=== PATIENT | male | born 1960 | race Caucasian/White ===

== ENCOUNTER 2019-10-29 17:46 | Outpatient (CLI) | payer OTHER, SELFPAY ==
[2019-10-29 18:09] LABS: Hematocrit 41.9 % (42.0-52.0); Hemoglobin 14.5 g/dL (14.0-18.0); Mean Corpuscular HGB Conc 34.6 g/dl (32-36); Mean Corpuscular Hemoglobin 32.4 pg (26-34); Mean Corpuscular Volume 93.5 fl (80-100); Mean Platelet Volume 10.1 fl (7.4-10.4); Platelet Count Result 224 k/mm3 (150-375); Red Blood Count 4.48 M/mm3 (4.6-6.20); White Blood Count 6.1 K/mm3 (4.5-10.0)
[2019-10-29 18:30] LABS: Anion Gap 5 mmol/L (8-16); Blood Urea Nitrogen 18 mg/dL (9-20); Carbon Dioxide 28 mmol/L (22-30); Chloride 105 mmol/L (98-107); Estimated Glomerular Filt Rate > 60; Glucose 104 mg/dL (75-110); Potassium 4.1 mmol/L (3.4-5.0); Sodium 138 mmol/L (137-145)
== END 2019-10-29 17:47 | disposition home or self-care (01) ==
PROVIDERS: PCP Family Medicine; Visit Provider Nurse Practitioner Family
DX: H00.019 Hordeolum externum unspecified eye, unspecified eyelid (principal)
CPT/HCPCS: 36415; 80048; 85027

== ENCOUNTER 2022-06-03 01:48 | Day surgery (SDC) | payer OTHER, SELFPAY ==
[2022-06-02 10:53] VITALS: BMI 23.8
--- NOTE | 2022-06-02 11:00 | PC.NURSE ---
Report to the Outpatient Waiting Room, entrance under the green pavilion located off [facility], at time 1130 on date 06/03/22. Planned Procedure Time: 1330. Time changes happen often and if your time is changed the preop area will call you the afternoon before. - You and your visitor will be asked to self-screen and do not enter if you have any COVID symptoms. - Only one visitor is requested with a max of two and NO children visitors are allowed at this time. - The patient visitor may be requested to leave or wait in car when not with patient due to distancing restrictions. - A mask is optional within the hospital at this time. Patients may have clear liquids (water, carbonated beverages, clear teas, apple juice) until 3 hours prior to surgery with a maximum of 20 ounces. - No food from midnight until time of surgery Take the following medications with a SIP of water the morning of surgery: ANTIBIOTIC DO NOT STOP ANY OF YOUR OTHER PRESCRIPTION MEDICATIONS PRIOR TO SURGERY EXCEPT THE FOLLOWING Medications to discontinue per physician: N/A Date to take last dose: N/A Please no make-up, nail mexican, hairspray, perfume, deodorant, or body powder the day of surgery. No jewelry (including any body piercings) or valuables the day of surgery, leave them at home. Please take a shower or bath the night before, or the morning of, surgery with an antibacterial soap. Wear comfortable, loose fitting clothing. - Jewelry must be removed prior to entering the operating room. Rings and piercings that are not removed may be cut off. - The hospital will not accept responsibility for valuables. - Please leave all valuables, including medications, at home the day of surgery. If you are going home after surgery, a licensed taxicab driver must drive you home. - NO public transportation without another adult if you receive anesthesia. - We recommend that an adult stay with you for 24 hours following discharge. - We also recommend that you do not drive, make important decision, drink alcoholic beverages, or take any drugs that were not prescribed by your health care provider for at least 24 hours after your discharge time. Follow any additional instructions given to you from your surgeon. If you or anyone in your household have experienced Covid symptoms in the past week, please notify your surgeon or the nurse liaison at the phone number below for possible testing. Telephone instructions given to PT Sterling GARBER and asked if any additional questions and then verbalized understanding. Patient advised to call surgeon office or pre surgery nurse liaison [phone] if any additional questions.
[2022-06-03 11:28] VITALS: BP 106/59; PULSE 51; RESP 16; TEMP 36.2; O2SAT 100
--- NOTE | 2022-06-03 12:09 | WPDANESEPPF ---
Anes - Initial Pre Proc Eval Procedure: Operation Date: 06/03/22 13:30 Proposed Procedures p Incision and Drainage of Right Buttock Abscess - Fadumo De La Rosa MD Date/Time: 06/03/22 12:09 Surgeon: Fadumo De La Rosa MD Pre Op Diagnosis: Infected Pilonidal Cyst Patient Data Age: 61 Gender: M Height: 1.93 m Weight: 87 kg Last Vital Signs Temp 36.2 C L 06/03/22 11:28 Pulse 51 L 06/03/22 11:28 Resp 16 06/03/22 11:28 BP 106/59 L 06/03/22 11:28 Pulse Ox 100 06/03/22 11:28 O2 Del Method Room Air 06/03/22 11:28 Allergies Allergy/AdvReac Type Severity Reaction Status Date / Time aspirin AdvReac Intermediate Vomiting Verified 06/03/22 11:43 Home Medications Medication Instructions Recorded Confirmed Type albuterol sulfate 90 mcg/actuation 1 inh inhalation Q4H PRN shortness 05/06/22 06/02/22 Rx aerosol inhaler of breath or wheezing #8.5 grams sildenafil 100 mg tablet (Viagra) 100 mg PO DAILY PRN sexual 05/20/22 06/02/22 Rx activity #10 tabs sulfamethoxazole 800 1 tablet PO Q12H 10 days #20 tabs 05/27/22 06/03/22 Rx mg-trimethoprim 160 mg tablet (Bactrim DS) Patient hx anesthesia problems: none Family hx anesthesia problems: none Results Review: All pre-operative results and documents have been reviewed as part of the pre-operative evaluation. [facility] Past Medical History Medical History (Updated 06/03/22 @ 12:11 by Stevo Carrera MD) BMI 20.0-20.9, adult BMI 22.0-22.9, adult BMI 23.0-23.9, adult Bronchitis Erectile dysfunction History of squamous cell carcinoma Surgical History Surgical History (Updated 06/02/22 @ 09:43 by Henrietta Winn) History of ankle surgery S/P tonsillectomy Family History Family History Grandparent Family history of coronary artery disease Family history of heart disease in male family member before age 55 Diabetes mellitus Father Leukemia COPD (chronic obstructive pulmonary disease) Tobacco abuse Mother Heart disease Sibling Brain aneurysm Social History Social History Smoking packs per day: 1 Smoking cigarettes per day: 20.0 Years smoked: 40 Smoking pack-years: 40.00 Smoking status: Former smoker Tobacco type: cigarettes Second hand tobacco smoke exposure: Yes Smoking end date: 03/21/22 Alcohol intake: current Alcohol use details: ONLY WHEN CAMPING Substance use: never Substance use type: does not use Lack of Transportation: No Lack of Food: Never True Current Housing: I Have Housing Concerned About Future Housing: No Difficulty Paying Gas/Electric Bills: No Difficulty Paying for Meds: No Currently Unemployed: No Education: Trade/Vocational Certificate Difficulty w/ Childcare or Family Care: No Living arrangements: with family Occupation/Education: occupation 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 Informed Consent: The patient's anesthetic plan and its attendant risks and benefits were discussed with the patient/family/POA. Questions were solicited and answers provided to the satisfaction of the patient/family/POA.
[2022-06-03] MEDS: LACTATED RINGERS 1,000 ML 30 ML IV CONT (12:15)
--- NOTE | 2022-06-03 12:58 | WPDHPUPDATE1 ---
History and Physical Update Update Date/Time: 06/03/22 12:58 History and Physical has been reviewed, including an updated exam of the patient. There are NO changes in the patient's condition. Risks, benefits, and alternatives have been discussed and questions answered. Patient agrees to proceed with procedure.
[2022-06-03] MEDS: ceFAZolin 2 GM/D5W 50 ML 2 GM/50 ML BAG IVPB (13:05)
[2022-06-03] MEDS: BUPIVACAINE/EPINEPHRINE 0.5% 50 ML VIAL 10 ML INFILTRATE (13:24)
[2022-06-03 13:39] VITALS: BP 99/67; PULSE 55; RESP 16; O2SAT 98
--- NOTE | 2022-06-03 13:56 | W.PM.PROC2 ---
Procedure Note - Detailed Date of Procedure 06/03/22 Pre-op Diagnosis Infected right buttock cyst Post-op Diagnosis Same Procedure Performed complex incision and drainage infected right buttock cyst measuring 3 x 3 cm Surgeon Fadumo De La Rosa MD Anesthesia General and Local Indications 61-year-old male presenting to the office with right buttock abscess. Upon examination it was noted that the patient had an infected right buttock cyst and would need drainage Findings infected sebaceous cyst right buttock containing ruptured cystic material as well as pus Description of Procedure The patient was taken to the operating room placed in the lateral position. After adequate induction of general anesthesia the patient was prepped and draped in the normal sterile fashion. A time-out was then done to verify the patient's identity, as well as the procedure being performed. I began by localizing the area in and around the abscess/cyst. Once locally anesthetized, I made an incision over the most fluctuant area of the abscess. Upon getting into the cavity, there was noted to be ruptured cystic material, as well as purulent drainage. Using pressure and the hemostat I was able to break up loculations and express all the content in the cavity. Once the cavity was completely explored and drained, measured approximately 3 x 3 cm. I then washed out the cavity with normal saline. Hemostasis was noted and no other pathology was noted. I then packed the area with 1/2 inch iodoform packing tape to keep the area open and draining. The patient tolerated the procedure well and was alert and awake in the operating room postoperatively. He will be transferred to the recovery room in stable condition. Estimated Blood Loss 5 Packing Yes Pathology None sent Complications No immediate complications Condition Stable Disposition PACU [facility] Billing Surgery - Charge Forward: Surgery Billing
[2022-06-03 14:05] VITALS: BP 127/87; PULSE 59; RESP 16
[2022-06-03 14:30] VITALS: BP 123/83; PULSE 53; RESP 16
== END 2022-06-03 14:41 | disposition home or self-care (01) ==
PROVIDERS: PCP Family Medicine; Visit Provider Surgery
PROC: (CPT 10061; principal; 2022-06-03 13:30)
DX: L02.31 Cutaneous abscess of buttock (principal); Z87.891 Personal history of nicotine dependence; Z79.51 Long term (current) use of inhaled steroids
CPT/HCPCS: 10061; J0690; J2250; J2405; J2704; J3010; J7120

== ENCOUNTER 2022-07-15 08:07 | Outpatient (CLI) | payer OTHER, SELFPAY | END 2022-07-15 08:08 | disposition home or self-care (01) | LOC: ANHAUDIO 08:08 | PROVIDERS: PCP Family Medicine; Visit Provider Otolaryngology | DX: H93.8X9 Other specified disorders of ear, unspecified ear (principal); H90.3 Sensorineural hearing loss, bilateral | CPT/HCPCS: 92557; 92567 ==

== ENCOUNTER 2023-06-20 05:23 | Day surgery (SDC) | payer OTHER, SELFPAY ==
[2023-06-14 14:39] VITALS: BMI 24.8
--- NOTE | 2023-06-14 14:47 | PC.NURSE ---
Report to the Outpatient Waiting Room, entrance under the green pavilion located off [facility], at time 1245 on date 06/20/23. Planned Procedure Time: 1445. Time changes happen often and if your time is changed the preop area will call you the afternoon before. - You and your visitor will be asked to self-screen and do not enter if you have any COVID symptoms. - A mask is optional within the hospital at this time. Patients may have clear liquids (water, carbonated beverages, clear teas, apple juice) until 3 hours prior to surgery with a maximum of 20 ounces. - No food from midnight until time of surgery Take the following medications with a SIP of water the morning of surgery: NONE DO NOT STOP ANY OF YOUR OTHER PRESCRIPTION MEDICATIONS PRIOR TO SURGERY ?EXCEPT THE FOLLOWING Medications to discontinue per physician: N/A Date to take last dose: N/A Please no make-up, nail vietnamese, hairspray, perfume, deodorant, or body powder the day of surgery. No jewelry (including any body piercings) or valuables the day of surgery, leave them at home. Please take a shower or bath the night before, or the morning of, surgery with an antibacterial soap. Wear comfortable, loose fitting clothing. - Jewelry must be removed prior to entering the operating room. Rings and piercings that are not removed may be cut off. - The hospital will not accept responsibility for valuables. - Please leave all valuables, including medications, at home the day of surgery. If you are going home after surgery, a licensed warehouse delivery driver must drive you home. - NO public transportation without another adult if you receive anesthesia. - We recommend that an adult stay with you for 24 hours following discharge. - We also recommend that you do not drive, make important decision, drink alcoholic beverages, or take any drugs that were not prescribed by your health care provider for at least 24 hours after your discharge time. Follow any additional instructions given to you from your surgeon. If you or anyone in your household have experienced Covid symptoms in the past week, please notify your surgeon or the nurse liaison at the phone number below for possible testing. Telephone instructions given to PT - JACOB and asked if any additional questions and then verbalized understanding. Patient advised to call surgeon office or pre surgery nurse liaison [phone] if any additional questions.
[2023-06-20 14:05] VITALS: BP 132/84; PULSE 72; RESP 14; TEMP 36.6; O2SAT 98
[2023-06-20] MEDS: LACTATED RINGERS 1,000 ML 30 ML IV CONT ×2 (14:20→16:02)
--- NOTE | 2023-06-20 14:38 | WPDANESEPPF ---
Anes - Initial Pre Proc Eval Procedure: Operation Date: 06/20/23 14:45 Proposed Procedures p Excision of Right Buttock Cyst - Felipe Caraballo MD Date/Time: 06/20/23 14:38 Surgeon: Felipe Caraballo MD Pre Op Diagnosis: infected right buttock inclusion cyst Patient Data Age: 62 Gender: M Height: 1.93 m Weight: 92.2 kg Last Vital Signs Temp 97.8 F 06/20/23 14:05 Pulse 72 06/20/23 14:05 Resp 14 06/20/23 14:05 BP 132/84 06/20/23 14:05 Pulse Ox 98 06/20/23 14:05 O2 Del Method Room Air 06/20/23 14:05 Allergies Allergy/AdvReac Type Severity Reaction Status Date / Time aspirin AdvReac Intermediate Vomiting Verified 06/20/23 14:20 Home Medications Medication Instructions Recorded Confirmed Type tadalafil 10 mg tablet (Cialis) 10 mg PO DAILY PRN sexual activity 03/23/23 06/17/23 Rx #30 tabs Patient hx anesthesia problems: none Family hx anesthesia problems: none Results Review: All pre-operative results and documents have been reviewed as part of the pre-operative evaluation. [facility] Past Medical History Medical History BMI 20.0-20.9, adult BMI 22.0-22.9, adult BMI 23.0-23.9, adult Bronchitis Erectile dysfunction History of squamous cell carcinoma Surgical History Surgical History History of ankle surgery S/P tonsillectomy Status post incision and drainage complex incision and drainage infected right buttock cyst measuring 3x3 cm 06/03/22 Family History Family History Grandparent Family history of coronary artery disease Family history of heart disease in male family member before age 55 Diabetes mellitus Father Leukemia COPD (chronic obstructive pulmonary disease) Tobacco abuse Mother Heart disease Sibling Brain aneurysm Social History Social History Smoking packs per day: 1 Smoking cigarettes per day: 20.0 Years smoked: 40 Smoking pack-years: 40.00 Smoking status: Former smoker Tobacco type: cigarettes Second hand tobacco smoke exposure: Yes Smoking end date: 03/07/22 Alcohol intake: current Alcohol use details: RARE - WHEN CAMPING Substance use: never Substance use type: does not use Lack of Transportation: No Lack of Food: Never True Current Housing: I Have Housing Concerned About Future Housing: No Difficulty Paying Gas/Electric Bills: No Difficulty Paying for Meds: No Currently Unemployed: No Education: Trade/Vocational Certificate Difficulty w/ Childcare or Family Care: No Living arrangements: with family Occupation/Education: occupation 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 ) Neurological: alert and oriented Last oral intake: 6 hours ASA classification: III Emergent: no Anesthetic plan: proceed Anesthesia type and monitoring: general and standard monitoring Results Review: All pre-operative results and documents have been reviewed as part of the pre-operative evaluation. Informed Consent: The patient's anesthetic plan and its attendant risks and benefits were discussed with the patient/family/POA. Questions were solicited and answers provided to the satisfaction of the patient/family/POA.
--- NOTE | 2023-06-20 14:59 | WPDHPUPDATE1 ---
History and Physical Update Update Date/Time: 06/20/23 14:59 History and Physical has been reviewed, including an updated exam of the patient. There are NO changes in the patient's condition. Risks, benefits, and alternatives have been discussed and questions answered. Patient agrees to proceed with procedure.
[2023-06-20] MEDS: ceFAZolin 2 GM/D5W 50 ML 2 GM/50 ML BAG IVPB (15:05)
[2023-06-20] MEDS: LIDO 1%/EPINEPHRINE 1:100,000 20 ML VIAL 10 ML INFILTRATE (15:36)
[2023-06-20] MEDS: BUPivacaine HCL 0.5% 10 ML AMP INFILTRATE (15:37)
[2023-06-20 16:02] VITALS: BP 135/98; PULSE 83; RESP 16; TEMP 36.1; O2SAT 100
[2023-06-20 16:15] VITALS: BP 143/89; PULSE 76; RESP 14; O2SAT 100
[2023-06-20 16:30] VITALS: BP 157/98; PULSE 72; RESP 14; O2SAT 100
[2023-06-20 16:43] VITALS: BP 164/103; PULSE 64
--- NOTE | 2023-06-20 16:57 | SUR.PHASEII ---
RN called Dr. Caraballo to clarify if narcotics were being sent to patient's pharmacy. He said no narcotics at this time.
[2023-06-20 17:10] VITALS: BP 150/84; PULSE 59
--- NOTE | 2023-06-22 17:53 | P.OP_ITS ---
Procedure Note - Detailed Date of Procedure 06/20/23 Pre-op Diagnosis Infected right buttock inclusion cyst Post-op Diagnosis Same Procedure Performed Excision of right buttock infected cyst with 6cm intermediate wound closure. Surgeon Felipe Caraballo MD Anesthesia General Indications Patient is a 62-year-old gentleman who presented with infected right upper medial buttock sebaceous cyst. Presents now for excision. Findings The cyst measured 2.5x1.5x1cm. It appeared to be an infected sebaceous cyst. After excision of the cyst the incision was closed with a intermediate layered wound closure measuring 6cm. Description of Procedure After informed consent was obtained patient brought to the operating room was placed under general endotracheal anesthesia and then turned into the prone position on the operating table. Great care was taken to make sure that all the pressure points well padded. He was intubated because he had eaten back and chips earlier that morning when he was told to be NPO. The area the upper medial buttock region was then prepped and draped usual sterile fashion. A time-out was then performed correctly identifying the patient as well as procedure to be performed. Site marking was verified. 1% lidocaine mixed with 0.5% Marcaine was injected around the cyst for local anesthetic effect. An oblique elliptical incision was then made to incorporate the whole wall of the cyst. Dissection was carried deeply down to the dermis the skin with a scalpel electrocautery was used to completely excise out the ellipse of subcutaneous tissue incorporating the whole cyst wall without rupturing the wall. Once the tissue was adequately excised I measured the cyst was 2.5x1.5x1cm. It was sent to pathology for examination. I then irrigated the incision sterile saline dontrell ution. Hemostasis was then achieved in the incision utilized electrocautery. A 6cm intermediate layered wound closure was then performed. Interrupted 2-0 Vicryl sutures were placed in the deeper subcutaneous tissues. And there interrupted 3-0 Vicryl sutures then placed the superficial subcutaneous tissues. The skin edges were then approximated utilizing interrupted 3-0 nylon sutures placed in vertical mattress fashion. The incision was then cleaned and antibiotic ointment was applied. A sterile dressing was applied as well. The patient tolerated the procedure well no complications. All sponges, needles, and instrument counts were correct at the end procedure. EBL was __10_cc. The patient was awakened and taken to recovery in stable and satisfactory condition. Implants None Estimated Blood Loss 10 Drains No Packing No Pathology Yes ( infected sebaceous cyst sent to pathology) Complications No immediate complications Condition Stable Disposition PACU [facility] Billing Surgery - Charge Forward: Surgery Billing
== END 2023-06-20 17:17 | disposition home or self-care (01) ==
PROVIDERS: PCP Family Medicine; Visit Provider Surgery
PROC: (CPT 11404; principal; 2023-06-20 14:45)
DX: D23.5 Other benign neoplasm of skin of trunk (principal); N52.9 Male erectile dysfunction, unspecified; Z98.890 Other specified postprocedural states; Z87.891 Personal history of nicotine dependence; Z85.828 Personal history of other malignant neoplasm of skin; Z82.49 Family history of ischemic heart disease and other diseases of the circulatory system
CPT/HCPCS: 11404; 12032; 88305; A9270; J0330; J0690; J1100; J2405; J2704; J3010; J7120